=== PATIENT | male | born 1980 | race Caucasian/White ===

== ENCOUNTER 2018-10-31 17:43 | Emergency (ER) | payer MEDICAID ==
[~2018-10-31] VITALS: Ht 190.5 cm; Wt 102.1 kg
[2018-10-31 17:51] VITALS: BP_SYST 182
[2018-10-31] MEDS ORDERED: PREDNISONE 20 MG TABLET PO ONE (18:15)
[2018-10-31] MEDS ORDERED: DIPHENHYDRAMINE INJ 50 MG/ML VIAL IM ONE (18:15)
[2018-10-31 19:35] VITALS: BP_SYST 151
== END 2018-10-31 19:35 | disposition home or self-care (01) ==
LOC: SED 17:43
DX: T78.40XA Allergy, unspecified, initial encounter (principal); R03.0 Elevated blood-pressure reading, without diagnosis of hypertension; X58.XXXA Exposure to other specified factors, initial encounter
CPT/HCPCS: 96372; 99283; J1200; J7512